=== PATIENT | female | born 1960 | race Caucasian/White ===

== ENCOUNTER 2017-05-23 05:47 | Inpatient (IN) | payer OTHER ==
--- NOTE | 2017-05-18 09:45 | HP ---
CHIEF COMPLAINT: Bilateral knee pain. HISTORY OF PRESENT ILLNESS: Kinga is a 57-year-old female with a history of pain in both knees that has been getting progressively worse. She has had both knee arthroscopy as well as Synvisc, however, has failed to gain relief. Because of her ongoing pain, she has requested operative intervention. After discussing the risks, benefits and alternatives to that, the patient has given informed consent. PAST SURGICAL HISTORY: 1. . 2. Tubal ligation. 3. Hysterectomy. 3. Knee arthroscopy. 4. Gastric sleeve. 5. Appendectomy. MEDICATIONS: 1. Gabapentin. 2. Lisinopril. 3. Omeprazole. 4. Trazodone. 5. Citalopram. 6. Meloxicam. 7. Potassium. 8. Tradjenta. 9. Furosemide. ALLERGIES: NO KNOWN DRUG ALLERGIES. CODE STATUS: Full code. IMMUNIZATIONS: Up to date. SOCIAL HISTORY: The patient does not drink, smoke or use any illicit drugs. FAMILY HISTORY: None pertinent to today's complaint. REVIEW OF SYSTEMS: Negative except as indicated in the History of Present Illness. PHYSICAL EXAMINATION: VITAL SIGNS: Blood pressure 147/79. Pulse 70. Height 5'4". Weight 195 pounds. MENTAL STATUS: The patient is awake, alert, and is able to give a good history and participate in the physical. The patient is oriented to person, place and time. SKIN: Normal tone and turgor. HEENT: Normocephalic, atraumatic. Pupils equal, round and reactive. Mucosal membranes are moist. NECK: Normal range of motion. No thyromegaly, no lymphadenopathy. CHEST: Normal respiratory excursion. CARDIAC: Regular rate and rhythm. No murmurs, rubs or gallops. MUSCULOSKELETAL: The bilateral upper extremities show full active range of motion without pain. Sensation is intact. They are warm and well perfused. There is no crepitus and no deformity. The right knee shows severe pain to palpation and crepitus throughout her range of motion. She has no varus/valgus or anterior/posterior laxity. She does have full extension to flexion of 115 degrees. There is no pain with range of motion of the hip or ankle. The left lower extremity shows full range of motion of the hip without pain. She has intact sensation in the extremity. She has crepitus throughout her range of motion and severe pain with palpation of the knee and has pain with range of motion. She has no varus/valgus or anterior/posterior laxity. Strength is 5/5 throughout. IMAGING: X-rays show severe arthritis. ASSESSMENT: 1. Osteoarthritis. PLAN: The plan at this point is for total knee arthroplasty. We have discussed the risks, benefits, and alternatives to that and the patient has given informed consent. [facility][id number] [facility]
[2017-05-23] MEDS ORDERED: SODIUM CHL 0.9% 100ML MINI-BAG 100 ML IVPB ONE (05:50)
[2017-05-23] MEDS ORDERED: LACTATED RINGERS 1,000 ML ONE (05:50)
[2017-05-23] MEDS ORDERED: ceFAZolin SODIUM 1 GM VIAL ONE ×3 (05:51→14:00)
[2017-05-23] MEDS ORDERED: VANCOMYCIN HCL INJ 1,000 MG VIAL IVPB ONE ×4 (05:51→19:39)
[2017-05-23] MEDS ORDERED: TRANEXAMIC ACID 1,000 MG/10 ML VIAL ONE ×2 (05:51→06:00)
[2017-05-23] MEDS ORDERED: SODIUM CHLORIDE 0.9% 500ML 0 ML ONE (05:52)
[2017-05-23] MEDS ORDERED: SODIUM CHLORIDE 0.9% 250ML 250 ML ONE ×3 (05:52→19:38)
[2017-05-23] MEDS ORDERED: SODIUM CHLORIDE 0.9% 100ML 100 ML IVPB ONE (06:00)
[2017-05-23] MEDS ORDERED: ACETAMINOPHEN IV 1000MG 100 ML ONE (06:26)
[2017-05-23] MEDS ORDERED: MIDAZOLAM INJ 2 MG/2 ML VIAL ONE (06:26)
[2017-05-23] MEDS ORDERED: MORPHINE SULF *EPIDURAL* 1 MG/ML VIAL ONE (06:27)
[2017-05-23] MEDS ORDERED: fentaNYL CITRATE INJ 50 MCG/ML AMP ONE (06:27)
[2017-05-23] MEDS ORDERED: PROMETHAZINE HCL INJ 12.5 MG in SODIUM CHLORIDE 0.9% 50ML 50 ML IVPB PRN (06:47)
[2017-05-23] MEDS ORDERED: DEX 5% W/NACL 0.45% 1000ML 1,000 ML IVS PRN (06:47)
[2017-05-23] MEDS ORDERED: TRANEXAMIC ACID INJ 1,000 MG in SODIUM CHLORIDE 0.9% 100ML 100 ML IVPB ONE (06:47)
[2017-05-23] MEDS ORDERED: SODIUM CHLORIDE 0.9% (FLUSH) 10 ML SYG IV PRN (06:47)
[2017-05-23] MEDS ORDERED: traMADol HCL 50 MG TAB PO PRN (06:47)
[2017-05-23] MEDS ORDERED: BISACODYL SUPPOSITORY 10 MG PR PRN (06:47)
[2017-05-23] MEDS ORDERED: NALOXONE HCL INJ 0.4 MG/ML VIAL IV PRN (06:47)
[2017-05-23] MEDS ORDERED: ACETAMINOPHEN 500 MG TAB PO PRN (06:47)
[2017-05-23] MEDS ORDERED: BENZOCAINE-MENTH LOZ (CEPACOL) 1 EA LOZ MT PRN (06:47)
[2017-05-23] MEDS ORDERED: ACETAMINOPHEN 325 MG TAB PO PRN (06:47)
[2017-05-23] MEDS ORDERED: MORPHINE SULFATE INJ 10 MG/ML VIAL IV PRN (06:47)
[2017-05-23] MEDS ORDERED: MAGNESIUM HYDROXIDE 30 ML UD PO PRN (06:47)
[2017-05-23] MEDS ORDERED: MORPHINE SULFATE INJ 10 MG/ML VIAL IM PRN (06:47)
[2017-05-23] MEDS ORDERED: PROMETHAZINE HCL INJ 25 MG in SODIUM CHLORIDE 0.9% 50ML 50 ML IVPB PRN (06:47)
[2017-05-23] MEDS ORDERED: ONDANSETRON INJ 4 MG/2 ML VIAL IV PRN (06:47)
[2017-05-23] MEDS ORDERED: TEMAZEPAM 15 MG CAP PO PRN (06:47)
[2017-05-23] MEDS ORDERED: ZOLPIDEM TARTRATE 5 MG TAB PO PRN (06:47)
[2017-05-23] MEDS ORDERED: ALUMINUM & MAGNESIUM HYDROXIDE 30 ML UD PO PRN (06:47)
[2017-05-23] MEDS ORDERED: MORPHINE PCA 1 MG/ML 100 ML BAG IVPB SCH (07:00)
[2017-05-23] MEDS ORDERED: BUPIVACAINE 0.25% W/EPI 50 ML VIAL INJ ONE (08:30)
[2017-05-23] MEDS ORDERED: ONDANSETRON ODT 8 MG TAB PO ONE (10:00)
[2017-05-23] MEDS ORDERED: PROPOFOL 200 MG/20 ML VIAL IV ONE (10:00)
[2017-05-23] MEDS ORDERED: LIDOCAINE 1% 10 ML VIAL INJ ONE (10:00)
[2017-05-23] MEDS ORDERED: raNITIdine HCL INJ 25 MG/ML VIAL IV ONE (10:00)
[2017-05-23] MEDS ORDERED: DEXAMETHASONE INJ 10 MG/ML VIAL IV ONE (10:00)
[2017-05-23] MEDS ORDERED: ePHEDrine SULF 50 MG/ML IV ONE (10:00)
--- NOTE | 2017-05-23 11:26 | OP ---
DATE OF PROCEDURE: 05/23/17 PREOPERATIVE DIAGNOSIS: 1. Osteoarthritis of the left knee. POSTOPERATIVE DIAGNOSIS: 1. Osteoarthritis of the left knee. PROCEDURE: 1. Left total knee arthroplasty. SURGEON: Gurwinder Pantoja MD. BAND RIPSAW OPERATOR: Denys Pantoja CST, SA-C. ANESTHESIA: General. COMPLICATIONS: None. FINDINGS: Severe osteoarthritis of the knee. INDICATION: Ms. Bejarano has a long history of pain in the knee which has been refractory to conservative measures. Because of her ongoing pain and the refractory nature, she is requesting operative intervention. After discussing the risks, benefits and alternatives to that, the patient has given informed consent for total knee arthroplasty. PROCEDURE: The patient was brought to the Operating Room and placed in supine position. General anesthesia was induced and the patient's leg was sterilely prepped and draped. Following prepping and draping, the distal femur was exposed and using an intramedullary guide, the distal femoral cut was made. The appropriate sized cutting block was measured, pinned into place, and the anterior, posterior, and chamfer cuts were made. The ACL was transected and the tibia was subluxed. Both the medial and lateral menisci were removed. An intramedullary guide was used to make the proximal tibial cut. The appropriate sized base plate was placed and a trial polyethylene was placed. The trial femur was placed, the knee was reduced, and the knee was taken through a range of motion. The knee was stable in anterior, posterior, varus and valgus stress. The patella tracked anatomically without evidence of subluxation or dislocation. After trialing, the trial components were removed and the bony surfaces were thoroughly irrigated with saline. Following irrigation, the surfaces were dried and the final components were cemented into place. The excess cement was removed and the remaining cement was allowed to cure. The knee was again taken through a range of motion to confirm stability. The wound was then irrigated with saline and closure was performed using PDS to approximate the arthrotomy followed by closure of the subcutaneous tissues with a combination of running and interrupted Monocryl sutures. Sterile dressing was placed. The patient was awoken from anesthesia and taken to Recovery. POSTOPERATIVE INSTRUCTIONS: The patient will be weight-bearing as tolerated on postoperative day 1. COMPONENTS: Luda Triathlon knee, size 3 femur, size 3 tibia, 13mm insert. (Mine) PROCEDURE: The patient was brought to the Operating Room and placed in supine position. General anesthesia was induced and the patient's leg was sterilely prepped and draped. A midline incision with a standard medial parapatellar approach was used. The distal femur was exposed. Using an intramedullary guide, the distal femoral cut was made. Following the distal femoral cut, the anterior, posterior and Chamfer cuts were made. The ACL was transected and the tibia was subluxed. Intramedullary guide was used to make the proximal tibial cut. Trial baseplate, followed by trial femur and trial polyethylene were placed. The knee was reduced and taken through a range of motion. The patella tracked well and the knee was stable in varus/valgus and anterior/posterior directions. The trial components were removed. The bony surfaces were thoroughly irrigated and then dried. The final components were cemented into place and the excess cement was removed. The remaining cement was then allowed to cure. The knee was thoroughly irrigated and closure was performed with reapproximation of the arthrotomy using PDS. The skin was closed with combination of running and interrupted subcuticular stitches. Sterile dressing was placed. The patient was awoken from anesthesia and taken to Recovery. #[id number] [facility]
--- NOTE | 2017-05-23 13:19 | CONS ---
SUPERVISING PHYSICIAN: Dallas Bernal MD DATE OF CONSULTATION: 05/23/17 REASON FOR CONSULTATION: Postoperative medical management. HISTORY OF PRESENT ILLNESS: Ms. Bejarano is a 57-year-old female who underwent elective left total knee arthroplasty today. There were no intraoperative complications. She had apparently had bilateral knee pain for several years and it has progressively gotten worse. She has undergone outpatient therapy and it is not resolved and, in fact, worsened. There is already a plan for her to undergo a right total knee arthroplasty in August. However, the left one was done today. On examination, the patient is alert and oriented. She does complain of 7/10 pain, but does have a OPERATIONS SUPPORT REPRESENTATIVE hooked up at this time. PAST MEDICAL HISTORY: 1. Diabetes. 2. Neuropathy. 3. Hypertension. 4. Gastroesophageal reflux disease. 5. Insomnia. 6. Obesity. PAST SURGICAL HISTORY: 1. Hysterectomy. 2. Tubal ligation. 3. . 4. Knee arthroscopy. 5. Gastric sleeve. 6. Appendectomy. CURRENT MEDICATIONS: 1. Gabapentin 300 mg p.o. daily. 2. Tradjenta 5 mg p.o. daily. 3. Lisinopril 40 mg p.o. daily. 4. Meloxicam 15 mg p.o. daily. 5. Metformin 1000 mg p.o. daily. 6. Omeprazole 40 mg p.o. daily. 7. Potassium 20 mEq p.o. daily. 8. Trazodone 100 mg p.o. at bedtime. ALLERGIES: NO KNOWN DRUG ALLERGIES. FAMILY HISTORY: Noncontributory. SOCIAL HISTORY: Nondrinker, nonsmoker. No illicit drugs. REVIEW OF SYSTEMS: 12-system review is normal except for bilateral knee pain as indicated in history of present illness. PHYSICAL EXAMINATION: VITAL SIGNS: Blood pressure 118/73. Heart rate 84. Respiratory rate 18. Temperature 97.9. Oxygen saturation 95%. GENERAL: Ms. Bejarano is a 57-year-old female in no active distress currently. HEENT: Normocephalic, atraumatic. Pupils are equal and reactive. No nasal drainage. Throat with moist mucosa. NECK: Supple. Midline trachea. No jugular venous distention. CHEST: Symmetrical with equal rise and fall of the chest with inspiration and expiration. Lung sounds are clear to auscultation bilaterally. CARDIOVASCULAR: Regular rate and rhythm. Normal S1, S2. ABDOMEN: Soft. Positive bowel sounds. GENITOURINARY: Deferred. EXTREMITIES: Left knee bound in a splint at this time. There is no peripheral edema. Pulses 2+. Capillary refill is less than 2 seconds. NEUROLOGIC: The patient is alert and oriented. ASSESSMENT: 1. Severe left knee osteoarthritis status post left total knee arthroplasty. 2. Hypertension. 3. Diabetes mellitus. 4. Peripheral neuropathy. 5. Gastroesophageal reflux disease. PLAN: 1. Continue physical therapy and postoperative treatment per postoperative orders by Dr. Pantoja. 2. I will resume her home medications. If her blood sugars become elevated despite her home medications, we can utilize a sliding scale. However, I will not do that at this time. 3. Lovenox is ordered at this point for DVT prophylaxis. 4. In the morning, I will check her chemistry as well as CBC. [facility][id number] [facility] [address]
[2017-05-23] MEDS: GABAPENTIN 300 MG CAP PO SCH (13:46)
[2017-05-23] MEDS: OMEPRAZOLE CAP 20 MG CAP PO SCH (13:47)
[2017-05-23] MEDS: CELECOXIB 100 MG CAP PO SCH ×2 (13:47→16:59)
[2017-05-23] MEDS: LISINOPRIL 10 MG TAB PO SCH (14:04)
[2017-05-23] MEDS: LINAGLIPTIN 5 MG TAB PO SCH (14:04)
[2017-05-23] MEDS: metFORMIN HCL 500 MG TAB PO SCH (14:05)
[2017-05-23] MEDS: MAGNESIUM OXIDE 400 MG TAB PO SCH (14:05)
[2017-05-23] MEDS: IV SET AND CAP CHANGE INJ INJ SCH (14:09)
[2017-05-23] MEDS ORDERED: ceFAZolin SODIUM 2 GRAMS PREMI 50 ML IVPB ONE ×2 (14:48→19:39)
[2017-05-23] MEDS ORDERED: GLUCAGON INJ 1 MG VIAL SUBCU PRN (15:23)
[2017-05-23] MEDS ORDERED: DEXTROSE 50% 25 GM/50 ML SYG IV PRN (15:23)
[2017-05-23] MEDS: ceFAZolin SODIUM 2 GRAMS PREMI 2 GM in PREMIX BAG 1 BAG IVPB SCH ×2 (15:47→23:39)
--- NOTE | 2017-05-23 16:35 | RAD ---
EXAM DESCRIPTION: Knee,Left 2 or More Views CLINICAL HISTORY: 57 years, Female, TKA COMPARISON: None TECHNIQUE: 2 views of the left knee FINDINGS: No fracture or dislocation. Total left knee arthroplasty is present with anatomic alignment of the femoral and tibial components. There is air in the joint and air in the soft tissues with dressings or drain in place. Lateral view shows normal position of the patella. No patellar spurring or enthesopathy. No suprapatellar knee joint effusion. Normal contour of quadriceps and patellar tendons. IMPRESSION: Total left knee arthroplasty. No complicating fracture. Electronically signed by: Fili Grier MD 05/23/2017 4:33 PM CDT
[2017-05-23] MEDS: SODIUM CHLORIDE 0.45% 1000ML 1,000 ML IVS PRN (16:48)
[2017-05-23] MEDS: INSULIN LISPRO 100 UNITS/ML PEN SUBCU SCH ×2 (16:58→21:15)
[2017-05-23] MEDS: VANCOMYCIN HCL INJ 1,000 MG in SODIUM CHLORIDE 0.9% 250ML 250 ML IVPB SCH (17:37)
[2017-05-23] MEDS ORDERED: ENOXAPARIN SODIUM 30 MG/0.3 ML SYG SUBCU ONE (19:39)
[2017-05-23] MEDS ORDERED: diphenhydrAMINE HCL 25 MG CAP ONE (20:07)
[2017-05-23] MEDS: DOCUSATE CALCIUM 240 MG CAP PO SCH (20:12)
[2017-05-23] MEDS: diphenhydrAMINE HCL 25 MG CAP PO PRN (20:12)
[2017-05-23] MEDS: traZODone HCL 100 MG TAB PO SCH (20:12)
[2017-05-23] MEDS: ENOXAPARIN SODIUM 30 MG/0.3 ML SYG SUBCU SCH (22:55)
[2017-05-24] MEDS: diphenhydrAMINE HCL 25 MG CAP PO PRN ×3 (05:27→16:04)
[2017-05-24] MEDS: VANCOMYCIN HCL INJ 1,000 MG in SODIUM CHLORIDE 0.9% 250ML 250 ML IVPB SCH (05:55)
[2017-05-24] MEDS: OMEPRAZOLE CAP 20 MG CAP PO SCH (06:12)
[2017-05-24] MEDS ORDERED: ceFAZolin SODIUM 2 GRAMS PREMI 50 ML IVPB ONE (07:00)
[2017-05-24] MEDS: INSULIN LISPRO 100 UNITS/ML PEN SUBCU SCH ×4 (07:09→21:37)
[2017-05-24] MEDS: metFORMIN HCL 500 MG TAB PO SCH (07:10)
[2017-05-24] MEDS: CELECOXIB 100 MG CAP PO SCH ×2 (07:10→16:04)
[2017-05-24] MEDS: ceFAZolin SODIUM 2 GRAMS PREMI 2 GM in PREMIX BAG 1 BAG IVPB SCH (08:00)
[2017-05-24] MEDS: GABAPENTIN 300 MG CAP PO SCH (08:04)
[2017-05-24] MEDS: LINAGLIPTIN 5 MG TAB PO SCH (08:04)
[2017-05-24] MEDS: LISINOPRIL 10 MG TAB PO SCH (08:04)
[2017-05-24] MEDS: MAGNESIUM OXIDE 400 MG TAB PO SCH (08:05)
[2017-05-24] MEDS: ENOXAPARIN SODIUM 30 MG/0.3 ML SYG SUBCU SCH ×2 (10:54→23:32)
--- NOTE | 2017-05-24 11:34 | PN ---
DATE: 05/24/17 SUBJECTIVE: Ms. Bejarano today is doing well. She has great pain control this morning. OBJECTIVE: Afebrile. Vital signs stable. Dressing is clean, dry and intact. ASSESSMENT: Status post total knee arthroplasty. PLAN: The plan at this point is for her to begin weight-bearing as tolerated today. #[id number] [facility]
--- NOTE | 2017-05-24 11:35 | PN ---
DATE: 05/23/17 POSTOPERATIVE CHECK SUBJECTIVE: Ms. Bejarano is doing well and has no pain. She had a successful spinal. OBJECTIVE: Afebrile. Vital signs stable. Dressing is clean, dry and intact. ASSESSMENT: Status post total knee arthroplasty. PLAN: The plan at this point is to begin weight-bearing as tolerated on postoperative day #1. #[id number] [facility]
[2017-05-24] MEDS: SODIUM CHLORIDE 0.45% 1000ML 1,000 ML IVS PRN (16:42)
--- NOTE | 2017-05-24 18:27 | PN ---
DATE: 05/24/17 SUBJECTIVE: Today is the first day after surgery. She successfully completed the surgical procedure yesterday and now is entering into a more active and steadily increasing program of rehabilitation to continue until it will be safe for her to continue with outpatient management. The patient is getting some rest but is able to answer questions fully. Her appetite is slowly improving as well. Still with pain especially with range of motion. Less discomfort upon weightbearing which will increase as rehab continues. OBJECTIVE: Afebrile, blood pressure 45/75, pulse oximetry is 99% on 2 liters. LUNGS: Clear. HEART: Tones regular. ABDOMEN: Soft yet slightly obese with no tenderness or organomegaly noted. The left knee appears to be in good position with no drainage into the dressings present. LABORATORY STUDIES: Hemoglobin 10.5 postoperatively with white count 13,200, neutrophils 83%. Urine culture is pending. ASSESSMENT: 1. Postoperative day #1 total left knee arthroplasty for advanced osteoarthritis and degenerative changes failing to respond to outpatient treatment and requiring surgical intervention to assist with symptom control. 2. History of hypertension. 3. Diabetes mellitus. 4. Chronic peripheral neuropathy. 5. History of gastroesophageal reflux disease. PLAN: Will continue with rehabilitation under Physical Therapy and Orthopedic Surgery supervision. Again, strongly encouraged to breathe deeply to prevent atelectasis and to assist with DVT prophylaxis along with contraction and relaxation of the lower extremity muscles. Continue with active rehabilitation and reevaluate in the morning. #[id number] [facility]
[2017-05-24] MEDS: traZODone HCL 100 MG TAB PO SCH (20:35)
[2017-05-24] MEDS: DOCUSATE CALCIUM 240 MG CAP PO SCH (20:35)
[2017-05-25] MEDS: OMEPRAZOLE CAP 20 MG CAP PO SCH (06:00)
[2017-05-25] MEDS: CYCLOBENZAPRINE HCL 10 MG TAB PO PRN ×2 (06:01→20:37)
[2017-05-25] MEDS: HYDROcodone 5MG/APAP 325MG 1 EA TAB PO PRN ×4 (06:01→20:36)
[2017-05-25] MEDS: CELECOXIB 100 MG CAP PO SCH ×2 (07:14→16:12)
[2017-05-25] MEDS: metFORMIN HCL 500 MG TAB PO SCH (07:14)
[2017-05-25] MEDS: INSULIN LISPRO 100 UNITS/ML PEN SUBCU SCH ×4 (07:16→21:30)
--- NOTE | 2017-05-25 08:24 | PN ---
DATE: 05/25/17 SUBJECTIVE: She is doing well and is having minimal pain. OBJECTIVE: Afebrile. Vital signs stable. Wound is clean. There are no signs or symptoms of infection. ASSESSMENT: Status post total knee arthroplasty. PLAN: She will continue with weight-bearing as tolerated and increase range of motion. She should be able to be discharged tomorrow. [facility][id number] [facility]
[2017-05-25] MEDS: LISINOPRIL 10 MG TAB PO SCH (08:33)
[2017-05-25] MEDS: MAGNESIUM OXIDE 400 MG TAB PO SCH (08:33)
[2017-05-25] MEDS: GABAPENTIN 300 MG CAP PO SCH (08:34)
[2017-05-25] MEDS: LINAGLIPTIN 5 MG TAB PO SCH (08:34)
[2017-05-25] MEDS: SODIUM CHLORIDE 0.9% (FLUSH) 10 ML SYG IV SCH ×2 (08:34→20:37)
[2017-05-25] MEDS: ENOXAPARIN SODIUM 30 MG/0.3 ML SYG SUBCU SCH ×2 (10:58→22:59)
--- NOTE | 2017-05-25 15:25 | PN ---
DATE: 05/25/17 SUBJECTIVE: Kinga Bejarano is now day 2 after total left knee arthroplasty. She is sitting up in the chair. She complains of discomfort especially upon weightbearing and suspension of the knee against gravity, but is showing some steady improvement. Her appetite is improved. No shortness of breath. Again strongly encouraged to breathe especially deep and to contract and relax her lower extremities to assist with DVT prophylaxis. OBJECTIVE: Afebrile, pulse 86, blood pressure 132/76, room air saturation 96%. The patient is awake and alert. Coloration is good. LUNGS: Clear. HEART: Tones regular. ABDOMEN: Soft. No drainage into the left knee incision dressing is noted. Blood pressure is doing well. LABORATORY: Sugar fasting this morning at 139. Urine culture was negative. ASSESSMENT: 1. Postoperative day #2 total left knee arthroplasty for advanced osteoarthritis and degenerative changes failing to respond to outpatient therapy and requiring surgical intervention to assist with symptom control. 2. History of hypertension. 3. Diabetes mellitus. 4. Chronic peripheral neuropathy. 5. History of gastroesophageal reflux disease. PLAN: Will continue rehab with reevaluation in the morning. Physical Therapy to discuss as to whether she will be ready to continue with outpatient management as of tomorrow. Continue ongoing observation, physical therapy and orthopedic surgical supervised rehabilitation and increased activity. [facility][id number] [facility]
[2017-05-25] MEDS: traZODone HCL 100 MG TAB PO SCH (20:37)
[2017-05-25] MEDS: DOCUSATE CALCIUM 240 MG CAP PO SCH (20:37)
[2017-05-26] MEDS: HYDROcodone 5MG/APAP 325MG 1 EA TAB PO PRN ×2 (04:30→08:30)
[2017-05-26] MEDS: OMEPRAZOLE CAP 20 MG CAP PO SCH (06:07)
[2017-05-26] MEDS: INSULIN LISPRO 100 UNITS/ML PEN SUBCU SCH (07:29)
[2017-05-26] MEDS: IV SET AND CAP CHANGE INJ INJ SCH (07:29)
[2017-05-26] MEDS: metFORMIN HCL 500 MG TAB PO SCH (07:47)
[2017-05-26] MEDS: CELECOXIB 100 MG CAP PO SCH (07:47)
[2017-05-26] MEDS: CYCLOBENZAPRINE HCL 10 MG TAB PO PRN (08:30)
[2017-05-26] MEDS: GABAPENTIN 300 MG CAP PO SCH (08:30)
[2017-05-26] MEDS: MAGNESIUM OXIDE 400 MG TAB PO SCH (08:30)
[2017-05-26] MEDS: LISINOPRIL 10 MG TAB PO SCH (08:30)
[2017-05-26] MEDS: LINAGLIPTIN 5 MG TAB PO SCH (08:30)
[2017-05-26] MEDS: SODIUM CHLORIDE 0.9% (FLUSH) 10 ML SYG IV SCH (08:31)
[2017-05-26 10:07] VITALS: BP 144/81; TEMP 98.2; O2SAT 99
[2017-05-26] MEDS: ENOXAPARIN SODIUM 30 MG/0.3 ML SYG SUBCU SCH (11:01)
--- NOTE | 2017-05-26 20:51 | DS ---
SUPERVISING PHYSICIAN: Dallas Bernal M.D. DISCHARGE DIAGNOSIS: 1. Postoperative day 3 for total left knee arthroplasty for advanced osteoarthritis and degenerative changes failing to respond to outpatient treatment therapy requiring surgical intervention for symptom control. 2. History of hypertension. 3. Diabetes mellitus. 4. Chronic peripheral neuropathy. 5. History of gastroesophageal reflux disease. REASON FOR HOSPITALIZATION: Ms. Bejarano is a 57 year-old female patient that underwent elective left knee arthroplasty on 05/23/17. She has had bilateral knee pain for several years secondary to osteoarthritis and degenerative changes that has progressively worsened. She had undergone several outpatient treatment measures that were unable to fully resolve her symptoms. The patient was seen in the immediate postoperative state and was followed through admission and discharge. LABORATORY: White count 13.2, hemoglobin 10.5, hematocrit 32.4, platelet count 203,000. Chemistries showed normal electrolytes with BUN 13, creatinine 0.79, blood sugars between 106 and 325. Urinalysis showed trace of blood, moderate leukocyte esterase with greater than 50 WBCs, 5 to 10 epithelials, 1+ urine bacteria. Urine culture showed no growth at 48 hours. RADIOLOGY: No additional radiographic studies were performed. HOSPITAL COURSE: Ms. Bejarano was admitted on 05/23/17 as noted above for elective total left knee arthroplasty performed by Dr. Gurwinder Pantoja. She had no complications intraoperative and was followed in the postoperative setting through physical therapy and rehabilitation efforts. It was felt that she had progressed with her physical therapy well enough to continue with outpatient therapy management. PLAN: Ms. Bejarano was to discharge to followup with Dr. Pantoja as scheduled on June 05 at 10:00 AM. She is to resume her home medications as instructed and to follow postoperative management of her wound as directed by Dr. Pantoja. She is to have no tub baths, could shower and utilize a walker, and increase activities as instructed by Physical Therapy. She was to return to the hospital should she have any concerning symptoms. At discharge, she had new prescriptions provided which included: 1. Flexeril 10 mg every 8 hours as needed for muscle spasms, #15. 2. [place] 5/325 one every 4 hours as needed for pain written by Dr. Pantoja. 3. Xarelto 10 mg daily for the next 8 days. All other medications prior to discharge were continued. Discharge diet was diabetic diet as tolerated. Condition on discharge was stable and improved. [facility][id number] [facility]
[2017-05-26] MEDS ORDERED: MAGNESIUM HYDROXIDE 30 ML UD PO ONE (21:00)
[2017-05-26] MEDS ORDERED: BISACODYL SUPPOSITORY 10 MG PR ONE (21:00)
== END 2017-05-26 11:32 | disposition home or self-care (01) | DRG 470 ==
LOC: AMB 05:47 → MS 10:15
PROVIDERS: ADMIT Orthopaedic Surgery; ATTEND Nurse Practitioner Family
PROC: 0SRD0J9 Replacement of Left Knee Joint with Synthetic Substitute, Cemented, Open Approach (ICD-10-PCS; principal; 2017-05-23 07:00)
DX: M17.12 Unilateral primary osteoarthritis, left knee (principal); I10 Essential (primary) hypertension; E11.42 Type 2 diabetes mellitus with diabetic polyneuropathy; K21.9 Gastro-esophageal reflux disease without esophagitis; G47.00 Insomnia, unspecified; E66.9 Obesity, unspecified; Z68.35 Body mass index [BMI] 35.0-35.9, adult

== ENCOUNTER 2017-08-15 05:47 | Inpatient (IN) | payer OTHER ==
[2017-08-15] MEDS ORDERED: ePHEDrine SULF 50 MG/ML ONE (07:00)
[2017-08-15] MEDS ORDERED: raNITIdine HCL INJ 25 MG/ML VIAL ONE (07:00)
[2017-08-15] MEDS ORDERED: PROPOFOL 200 MG/20 ML VIAL IV ONE (07:00)
[2017-08-15] MEDS ORDERED: SODIUM CHLORIDE 0.9% 50 ML VIAL ONE (07:00)
[2017-08-15] MEDS ORDERED: PHENYLEPHRINE INJ 1ML 10 MG/ML VIAL ONE (07:00)
[2017-08-15] MEDS ORDERED: DEXAMETHASONE INJ 10 MG/ML VIAL ONE (07:00)
[2017-08-15] MEDS ORDERED: METOCLOPRAMIDE HCL INJ 10 MG/2 ML VIAL ONE (07:00)
[2017-08-15] MEDS ORDERED: LACTATED RINGERS 1,000 ML ONE ×2 (08:27→14:00)
[2017-08-15] MEDS ORDERED: SODIUM CHL 0.9% 100ML MINI-BAG 100 ML IVPB ONE (08:27)
[2017-08-15] MEDS ORDERED: VANCOMYCIN HCL INJ 1,000 MG VIAL IVPB ONE ×3 (08:27→19:52)
[2017-08-15] MEDS ORDERED: TRANEXAMIC ACID 1,000 MG/10 ML VIAL ONE ×2 (08:27→08:28)
[2017-08-15] MEDS ORDERED: SODIUM CHLORIDE 0.9% 250ML 250 ML ONE ×2 (08:28→19:51)
[2017-08-15] MEDS ORDERED: ceFAZolin SODIUM 1 GM VIAL ONE ×2 (08:28→10:17)
[2017-08-15] MEDS ORDERED: SODIUM CHLORIDE 0.9% 100ML 100 ML IVPB ONE (08:28)
[2017-08-15] MEDS ORDERED: MIDAZOLAM INJ 2 MG/2 ML VIAL ONE ×2 (10:11→10:35)
[2017-08-15] MEDS ORDERED: fentaNYL CITRATE INJ 50 MCG/ML AMP ONE (10:11)
[2017-08-15] MEDS ORDERED: MORPHINE SULF *EPIDURAL* 1 MG/ML VIAL ONE (10:12)
[2017-08-15] MEDS ORDERED: BUPIVACAINE 0.25% W/EPI 50 ML VIAL INJ ONE (10:17)
[2017-08-15] MEDS ORDERED: BISACODYL SUPPOSITORY 10 MG PR PRN (11:11)
[2017-08-15] MEDS ORDERED: PROMETHAZINE HCL INJ 25 MG in SODIUM CHLORIDE 0.9% 50ML 50 ML IVPB PRN (11:11)
[2017-08-15] MEDS ORDERED: MAGNESIUM HYDROXIDE 30 ML UD PO PRN (11:11)
[2017-08-15] MEDS ORDERED: TRANEXAMIC ACID INJ 1,000 MG in SODIUM CHLORIDE 0.9% 100ML 100 ML IVPB ONE (11:11)
[2017-08-15] MEDS ORDERED: ACETAMINOPHEN 500 MG TAB PO PRN (11:11)
[2017-08-15] MEDS ORDERED: ACETAMINOPHEN 325 MG TAB PO PRN (11:11)
[2017-08-15] MEDS ORDERED: BENZOCAINE-MENTH LOZ (CEPACOL) 1 EA LOZ MT PRN (11:11)
[2017-08-15] MEDS ORDERED: MORPHINE SULFATE INJ 10 MG/ML VIAL IM PRN (11:11)
[2017-08-15] MEDS ORDERED: SODIUM CHLORIDE 0.9% (FLUSH) 10 ML SYG IV PRN (11:11)
[2017-08-15] MEDS ORDERED: TEMAZEPAM 15 MG CAP PO PRN (11:11)
[2017-08-15] MEDS ORDERED: ONDANSETRON INJ 4 MG/2 ML VIAL IV PRN (11:11)
[2017-08-15] MEDS ORDERED: NALOXONE HCL INJ 0.4 MG/ML VIAL IV PRN (11:11)
[2017-08-15] MEDS ORDERED: ALUMINUM & MAGNESIUM HYDROXIDE 30 ML UD PO PRN (11:11)
[2017-08-15] MEDS ORDERED: PROMETHAZINE HCL INJ 12.5 MG in SODIUM CHLORIDE 0.9% 50ML 50 ML IVPB PRN (11:11)
[2017-08-15] MEDS ORDERED: ZOLPIDEM TARTRATE 5 MG TAB PO PRN (11:11)
[2017-08-15] MEDS ORDERED: ACETAMINOPHEN IV 1000MG 100 ML ONE (11:19)
[2017-08-15] MEDS ORDERED: MORPHINE PCA 1 MG/ML 100 ML BAG IVPB SCH (11:30)
--- NOTE | 2017-08-15 13:35 | OP ---
DATE OF PROCEDURE: 08/15/17 PREOPERATIVE DIAGNOSIS: 1. Osteoarthritis. POSTOPERATIVE DIAGNOSIS: 1. Osteoarthritis. PROCEDURE: 1. Total knee arthroplasty. SURGEON: Gurwinder Pantoja MD. PROOF OPERATOR: Denys Pantoja CST, SA-C. ANESTHESIA: General anesthesia. COMPLICATIONS: None. FINDINGS: Severe arthritis. INDICATION: Ms. Bejarano has a long history of pain in both knees. She has had left knee arthroscopy and has recovered well. She has requested operative intervention on the right because of her failure of conservative measures. After discussing the risks, benefits and alternatives to that, the patient has given informed consent for total knee arthroplasty. PROCEDURE: The patient was brought to the Operating Room and placed in supine position. General anesthesia was induced and the patient's leg was sterilely prepped and draped. Following prepping and draping, the distal femur was exposed and using an intramedullary guide, the distal femoral cut was made. The appropriate sized cutting block was measured, pinned into place, and the anterior, posterior, and chamfer cuts were made. The ACL was transected and the tibia was subluxed. Both the medial and lateral menisci were removed. An intramedullary guide was used to make the proximal tibial cut. The appropriate sized base plate was placed and a trial polyethylene was placed. The trial femur was placed, the knee was reduced, and the knee was taken through a range of motion. The knee was stable in anterior, posterior, varus and valgus stress. The patella tracked anatomically without evidence of subluxation or dislocation. After trialing, the trial components were removed and the bony surfaces were thoroughly irrigated with saline. Following irrigation, the surfaces were dried and the final components were cemented into place. The excess cement was removed and the remaining cement was allowed to cure. The knee was again taken through a range of motion to confirm stability. The wound was then irrigated with saline and closure was performed using PDS to approximate the arthrotomy followed by closure of the subcutaneous tissues with a combination of running and interrupted Monocryl sutures. Sterile dressing was placed. The patient was awoken from anesthesia and taken to Recovery. POSTOPERATIVE INSTRUCTIONS: The patient will be weight-bearing as tolerated on postoperative day 1. COMPONENTS: [employer] Triathlon knee, size 3 femur, size 3 tibia, 11 mm insert. #[id number] [facility]
--- NOTE | 2017-08-15 14:31 | HP ---
CHIEF COMPLAINT: Knee pain. HISTORY OF PRESENT ILLNESS: Ms. Bejarano is a 57-year-old female with a history of pain severe pain in the knees. She has had left total knee arthroplasty. She is requesting right total knee arthroplasty. Unfortunately, she has failed conservative measures and as such, her options have become limited. Because of that, she and I have discussed the risks, benefits and alternatives to operative therapy. Informed consent was obtained. MEDICATIONS: 1. Gabapentin. 2. Lisinopril. 3. Omeprazole. 4. Trazodone. 5. Citalopram. 6. Meloxicam. 7. Potassium. 8. Tradjenta. 9. Furosemide. ALLERGIES: NO KNOWN DRUG ALLERGIES. CODE STATUS: Full code. IMMUNIZATIONS: Up to date. FAMILY HISTORY: None pertinent to today's complaint. SOCIAL HISTORY: The patient does not drink, smoke or use any illicit drugs. REVIEW OF SYSTEMS: Negative except as indicated in the History of Present Illness. PHYSICAL EXAMINATION: VITAL SIGNS: Blood pressure 147/79. Pulse 70. Height 5'4". Weight 185. MENTAL STATUS: The patient is awake, alert, and is able to give a good history and participate in the physical. The patient is oriented to person, place and time. SKIN: Normal tone and turgor. HEENT: Normocephalic, atraumatic. Pupils equal, round and reactive. Mucosal membranes are moist. NECK: Normal range of motion. No thyromegaly, no lymphadenopathy. CHEST: Normal respiratory excursion. CARDIAC: Regular rate and rhythm. No murmurs, rubs or gallops. MUSCULOSKELETAL: Bilateral upper extremities show full active range of motion. She has intact sensation. They are warm and well perfused. There is no crepitus with range of motion. Strength is 5/5. The left knee shows well- healed wound anteriorly. The hip has full range of motion. There is no deformity. She has full extension with flexion of the knee to about 120 degrees. Strength is 5/5. The right hip shows no pain with range of motion. Sensation is intact. It is warm and well perfused. She has severe pain with palpation of the knee. She has no varus/valgus or anterior/posterior laxity in the knee. She has mild effusion. ASSESSMENT: 1. Arthritis of the knee. PLAN: Because of her failure of conservative measures, she has requested operative intervention. We have discussed the risks, benefits, and alternatives to operative therapy and the patient has given informed consent. [facility][id number] [facility]
[2017-08-15] MEDS: IV SET AND CAP CHANGE INJ INJ SCH (15:02)
[2017-08-15] MEDS: DEX 5% W/NACL 0.45% 1000ML 1,000 ML IVS PRN (15:05)
--- NOTE | 2017-08-15 15:35 | CONS ---
DATE OF CONSULTATION: 08/15/17 SUPERVISING PHYSICIAN: Dallas Bernal M.D. REASON FOR CONSULTATION: Medical management. HISTORY OF PRESENT ILLNESS: This is a 57 year-old female who underwent an elective right total knee arthroplasty today. There were no intraoperative complications. She had had bilateral knee pain for several years and had progressively gotten worse. She underwent outpatient therapy and did not resolve the issues, and therefore she opted for surgery. Back in April she did have her left total knee arthroplasty without complication. Today, she underwent her right total knee arthroplasty. Currently she complains of pain at a 6 to 7, however the mobilization device is on at this time. The [employer]IST pump has been connected as well. PAST MEDICAL HISTORY: 1. Diabetes. 2. Neuropathy. 3. Hypertension. 4. Gastroesophageal reflux disease. 5. Lymphoma. 6. Obesity. PAST SURGICAL HISTORY: 1. Hysterectomy. 2. Tubal ligation. 3. section. 4. Left total knee arthroplasty. 5. Gastric sleeve. 6. Appendectomy. CURRENT MEDICATIONS: 1. Ferrous fumarate 80 mg p.o. daily. 2. Gabapentin 300 mg p.o. daily. 3. Trajenta 5 mg p.o. daily. 4. Lisinopril 40 mg p.o. daily. 5. Meloxicam 15 mg p.o. daily. 6. Metformin 1,000 mg p.o. daily. 7. Omeprazole 40 mg p.o. daily. 8. Potassium chloride 20 mEq p.o. daily. 9. Trazodone 100 mg p.o. at bedtime. ALLERGIES: NO KNOWN DRUG ALLERGIES. FAMILY HISTORY: Noncontributory. SOCIAL HISTORY: Nondrinker and nonsmoker. No illicit drugs. REVIEW OF SYSTEMS: Other than the right knee pain, the patient's 12 system review is normal. PHYSICAL EXAMINATION: VITAL SIGNS: Blood pressure 136/78, heart rate 100, respiratory rate 20, temperature 97.5, oxygen saturation 98%. GENERAL: Ms. Bejarano is a 57 year-old female who is in no active distress currently. HEENT: Head is normocephalic and atraumatic. EYES: Pupils are equal and reactive. NOSE: No drainage. THROAT: With moist mucosa. NECK: Supple. Midline trachea. No jugular venous distention. CHEST: Symmetrical with equal rise and fall of the chest with inspiration and expiration. Lung sounds are clear to auscultation bilaterally. HEART: Regular rate and rhythm. Normal S1 and S2. ABDOMEN: Soft, obese. Positive bowel sounds. EXTREMITIES: Lower extremity with no significant edema. Capillary refill is less than 2 seconds. Pulses are 2+. The right lower extremity is wrapped in Kei and a splint. NEUROLOGIC: The patient is alert and oriented. Moves all extremities. Extraocular movements are intact. IMPRESSION: 1. Severe right knee osteoarthritis status post right total knee arthroplasty. 2. Hypertension. 3. Diabetes mellitus. 4. Peripheral neuropathy. 5. Gastroesophageal reflux disease. PLAN: 1. Will continue physical therapy and postoperative treatment per orders by Dr. Pantoja. 2. I will resume her home medications. If her diabetes seems to be uncontrolled, I will start her on a sliding scale, however at this point I will utilize her p.o. medications. 3. Lovenox is already ordered for DVT prophylaxis, so will utilize this at this time. I will recheck her chemistry and magnesium along with H&H tomorrow morning to ensure these are acceptable. #[id number] [facility]
--- NOTE | 2017-08-15 16:00 | RAD ---
EXAM DESCRIPTION: Knee,Right 2 or More Views CLINICAL HISTORY: 57 years Female, TKA TECHNIQUE: 2 views of the right knee were performed. FINDINGS: The visualized bones appear well mineralized. No acute fracture or dislocation. Intact total knee arthroplasty. Suprapatellar soft tissue swelling and subcutaneous emphysema is noted consistent with recent surgery. IMPRESSION: Changes of right total knee arthroplasty with expected postsurgical changes in the surrounding soft tissues. Electronically signed by: Riana Patel MD 08/15/2017 3:59 PM CDT
[2017-08-15] MEDS: CELECOXIB 100 MG CAP PO SCH (16:41)
[2017-08-15] MEDS ORDERED: OMEPRAZOLE CAP 20 MG CAP ONE (19:51)
[2017-08-15] MEDS ORDERED: ENOXAPARIN SODIUM 30 MG/0.3 ML SYG SUBCU ONE (19:52)
[2017-08-15] MEDS ORDERED: ceFAZolin SODIUM 2 GRAMS PREMI 50 ML IVPB ONE (19:52)
[2017-08-15] MEDS: traZODone HCL 100 MG TAB PO SCH (20:43)
[2017-08-15] MEDS: DOCUSATE CALCIUM 240 MG CAP PO SCH (20:43)
[2017-08-15] MEDS: ceFAZolin SODIUM 2 GRAMS PREMI 2 GM in PREMIX BAG 1 BAG IVPB SCH (21:51)
[2017-08-15] MEDS: VANCOMYCIN HCL INJ 1,000 MG in SODIUM CHLORIDE 0.9% 250ML 250 ML IVPB SCH (22:32)
[2017-08-15] MEDS: HYDROcodone 5MG/APAP 325MG 1 EA TAB PO PRN (23:36)
[2017-08-15] MEDS: CYCLOBENZAPRINE HCL 10 MG TAB PO PRN (23:36)
[2017-08-16] MEDS: ENOXAPARIN SODIUM 30 MG/0.3 ML SYG SUBCU SCH ×2 (01:01→13:18)
[2017-08-16] MEDS: MORPHINE SULFATE INJ 10 MG/ML VIAL IV PRN ×2 (01:43→04:19)
[2017-08-16] MEDS ORDERED: ceFAZolin SODIUM 2 GRAMS PREMI 50 ML IVPB ONE ×2 (05:25→14:09)
[2017-08-16] MEDS: ceFAZolin SODIUM 2 GRAMS PREMI 2 GM in PREMIX BAG 1 BAG IVPB SCH ×2 (05:30→14:15)
[2017-08-16] MEDS ORDERED: diphenhydrAMINE HCL 50 MG/ML VIAL IV PRN (05:52)
[2017-08-16] MEDS: OMEPRAZOLE CAP 20 MG CAP PO SCH (06:07)
[2017-08-16] MEDS: CELECOXIB 100 MG CAP PO SCH ×2 (08:03→16:58)
[2017-08-16] MEDS: POTASSIUM CHLORIDE 20 MEQ TAB PO SCH (08:04)
[2017-08-16] MEDS: metFORMIN HCL 500 MG TAB PO SCH ×2 (08:04→08:08)
--- NOTE | 2017-08-16 08:05 | PN ---
DATE: 08/15/17 POSTOPERATIVE CHECK SUBJECTIVE: Ms. Bejarano is doing well and pain is well controlled. OBJECTIVE: Afebrile. Vital signs stable. Dressing is clean, dry and intact. ASSESSMENT: Status post total knee arthroplasty. PLAN: The plan at this point is to begin weight-bearing as tolerated on postoperative day 1. #[id number] [facility]
--- NOTE | 2017-08-16 08:07 | PN ---
DATE: 08/16/17 SUBJECTIVE: Ms. Bejarano is doing well and has no complaints. OBJECTIVE: Afebrile. Vital signs stable. Dressing is clean, dry and intact. ASSESSMENT: Status post total knee arthroplasty. PLAN: The plan at this point is for her to continue with weight-bearing as tolerated. #[id number] [facility]
[2017-08-16] MEDS ORDERED: MAGNESIUM SULFATE PREMIX 2GM 2 GM in PREMIX BAG 1 BAG IVPB ONE (08:34)
[2017-08-16] MEDS ORDERED: MAGNESIUM SULFATE PREMIX 2GM 50 ML IVPB ONE (08:57)
[2017-08-16] MEDS: FERROUS SULFATE 325 MG TAB PO SCH (09:19)
[2017-08-16] MEDS: LISINOPRIL 10 MG TAB PO SCH (09:19)
[2017-08-16] MEDS: GABAPENTIN 300 MG CAP PO SCH (09:19)
[2017-08-16] MEDS: MAGNESIUM OXIDE 400 MG TAB PO SCH (09:19)
[2017-08-16] MEDS: LINAGLIPTIN 5 MG TAB PO SCH (09:19)
[2017-08-16] MEDS ORDERED: SODIUM CHLORIDE 0.9% 250ML 250 ML ONE (11:21)
[2017-08-16] MEDS ORDERED: VANCOMYCIN HCL INJ 1,000 MG VIAL IVPB ONE (11:21)
[2017-08-16] MEDS: VANCOMYCIN HCL INJ 1,000 MG in SODIUM CHLORIDE 0.9% 250ML 250 ML IVPB SCH (11:25)
--- NOTE | 2017-08-16 11:39 | PN ---
SUPERVISING PHYSICIAN: Dallas Bernal MD DATE: 08/16/17 SUBJECTIVE: The patient states she is feeling okay. She is participating in physical therapy and actually ambulating in the [place] right now. She complains of obvious knee discomfort, but otherwise it is tolerable and the pain is being controlled. OBJECTIVE: VITAL SIGNS: Blood pressure 136/76. Heart rate 99. Respiratory rate 18. Temperature 98.5. Oxygen saturation 99%. GENERAL: Ms. Bejarano is a 57-year-old female in no active distress currently. NEUROLOGIC: Alert and oriented. LUNGS: Clear to auscultation bilaterally. CARDIOVASCULAR: Regular rate and rhythm. Normal S1, S2. ABDOMEN: Soft, obese. Positive bowel sounds. GENITOURINARY: Deferred. EXTREMITIES: Lower extremities with no edema. Capillary refill is less than 2 seconds. Right lower extremity still wrapped in Kei and splint. LABORATORY: Hemoglobin 11.1, hematocrit 34.4. Chemistry shows sodium 135, potassium 3.9, chloride 101, CO2 27, BUN 12, creatinine 0.64, glucose 124, calcium 9.2, magnesium 1.6. ASSESSMENT: 1. Severe right knee osteoarthritis status post right total knee arthroplasty , postoperative day #1. 2. Hypertension. 3. Diabetes mellitus. 4. Peripheral neuropathy. 5. Gastroesophageal reflux disease. 6. Hypomagnesemia. PLAN: 1. We will continue physical therapy and postoperative treatment per orders by Dr. Pantoja. 2. I am going to go ahead and replace her magnesium today. Continue all other current medications. She seems to be progressing pretty well with physical therapy so far. She may or may not rehab after this admission. #[id number] [facility]
[2017-08-16] MEDS: CYCLOBENZAPRINE HCL 10 MG TAB PO PRN (13:19)
[2017-08-16] MEDS: HYDROcodone 5MG/APAP 325MG 1 EA TAB PO PRN (17:18)
[2017-08-16] MEDS: DEX 5% W/NACL 0.45% 1000ML 1,000 ML IVS PRN (18:18)
[2017-08-16] MEDS ORDERED: DEXTROSE 50% 25 GM/50 ML SYG IV PRN (18:48)
[2017-08-16] MEDS ORDERED: GLUCAGON INJ 1 MG VIAL SUBCU PRN (18:48)
[2017-08-16] MEDS: INSULIN LISPRO 100 UNITS/ML PEN SUBCU SCH (21:03)
[2017-08-16] MEDS: traZODone HCL 100 MG TAB PO SCH (21:03)
[2017-08-16] MEDS: DOCUSATE CALCIUM 240 MG CAP PO SCH (21:03)
[2017-08-17] MEDS: CYCLOBENZAPRINE HCL 10 MG TAB PO PRN ×3 (00:32→23:30)
[2017-08-17] MEDS: ENOXAPARIN SODIUM 30 MG/0.3 ML SYG SUBCU SCH ×2 (00:32→13:43)
[2017-08-17] MEDS: HYDROcodone 5MG/APAP 325MG 1 EA TAB PO PRN ×5 (01:42→21:29)
[2017-08-17] MEDS: OMEPRAZOLE CAP 20 MG CAP PO SCH (06:27)
[2017-08-17] MEDS: INSULIN LISPRO 100 UNITS/ML PEN SUBCU SCH ×4 (07:33→21:18)
[2017-08-17] MEDS: metFORMIN HCL 500 MG TAB PO SCH (07:59)
[2017-08-17] MEDS: POTASSIUM CHLORIDE 20 MEQ TAB PO SCH (07:59)
[2017-08-17] MEDS: CELECOXIB 100 MG CAP PO SCH ×2 (07:59→16:53)
[2017-08-17] MEDS: SODIUM CHLORIDE 0.9% (FLUSH) 10 ML SYG IV SCH ×2 (09:11→21:15)
[2017-08-17] MEDS: GABAPENTIN 300 MG CAP PO SCH (09:11)
[2017-08-17] MEDS: LINAGLIPTIN 5 MG TAB PO SCH (09:11)
[2017-08-17] MEDS: LISINOPRIL 10 MG TAB PO SCH (09:11)
[2017-08-17] MEDS: FERROUS SULFATE 325 MG TAB PO SCH (09:11)
[2017-08-17] MEDS: MAGNESIUM OXIDE 400 MG TAB PO SCH (09:11)
--- NOTE | 2017-08-17 10:29 | PN ---
DATE: 08/17/17 SUBJECTIVE: Ms. Bejarano is continuing to improve with regards to pain. OBJECTIVE: Afebrile. Vital signs stable. Wound is clean. There are no signs or symptoms of infection. ASSESSMENT: Status post total knee arthroplasty. PLAN: The plan at this point is for her to continue with physical therapy. She is progressing at a rate that I think would be reasonable for her to be discharged this weekend. [facility][id number] [facility]
--- NOTE | 2017-08-17 11:01 | PN ---
SUPERVISING PHYSICIAN: Dallas Bernal MD DATE: 08/17/17 SUBJECTIVE: The patient is ambulating in the [place] once again. She is doing well and progressing well as far as physical therapy is concerned. OBJECTIVE: VITAL SIGNS: Blood pressure 161/85. Heart rate 96. Respiratory rate 16. Temperature 98.6. Oxygen saturation 100%. GENERAL: Ms. Bejarano is a 57-year-old female in no distress currently. NEUROLOGIC: Alert and oriented. LUNGS: Clear to auscultation bilaterally. CARDIOVASCULAR: Regular rate and rhythm. Normal S1, S2. ABDOMEN: Soft. Positive bowel sounds. GENITOURINARY: Deferred. EXTREMITIES: Lower extremities with no significant edema. Capillary refill is less than 2 seconds. Right lower extremity wound with no sign of infection. ASSESSMENT: 1. Severe right knee osteoarthritis status post right total knee arthroplasty , postoperative day #2. 2. Hypertension. 3. Diabetes mellitus. 4. Peripheral neuropathy. 5. Gastroesophageal reflux disease. PLAN: Continue physical therapy and postoperative treatment. She feels like she is going to go home around noon tomorrow as she has a ride coming in. She does have [facility] already set up that will come to her apartment. She is progressing quite well, so I do not feel like she is going to have any set backs to prevent this. I did start her on sliding scale last night as she did not want to take her metformin. Her glucoses have not been greatly out of range, however. We will plan on discharging tomorrow morning if nothing changes in the next 24 hours. #[id number] [facility]
[2017-08-17] MEDS: traMADol HCL 50 MG TAB PO PRN (18:40)
[2017-08-17] MEDS: traZODone HCL 100 MG TAB PO SCH (21:15)
[2017-08-17] MEDS: DOCUSATE CALCIUM 240 MG CAP PO SCH (21:15)
[2017-08-18] MEDS: ENOXAPARIN SODIUM 30 MG/0.3 ML SYG SUBCU SCH ×2 (01:25→13:45)
[2017-08-18] MEDS: traMADol HCL 50 MG TAB PO PRN ×2 (01:43→13:06)
[2017-08-18] MEDS: OMEPRAZOLE CAP 20 MG CAP PO SCH (06:04)
[2017-08-18 06:12] VITALS: TEMP 98.3
[2017-08-18] MEDS: HYDROcodone 5MG/APAP 325MG 1 EA TAB PO PRN ×2 (06:19→10:30)
[2017-08-18] MEDS: INSULIN LISPRO 100 UNITS/ML PEN SUBCU SCH ×2 (07:08→11:31)
[2017-08-18] MEDS: POTASSIUM CHLORIDE 20 MEQ TAB PO SCH (08:11)
[2017-08-18] MEDS: metFORMIN HCL 500 MG TAB PO SCH (08:11)
[2017-08-18] MEDS: CELECOXIB 100 MG CAP PO SCH (08:11)
[2017-08-18] MEDS: FERROUS SULFATE 325 MG TAB PO SCH (08:30)
[2017-08-18] MEDS: MAGNESIUM OXIDE 400 MG TAB PO SCH (08:30)
[2017-08-18] MEDS: LINAGLIPTIN 5 MG TAB PO SCH (08:30)
[2017-08-18] MEDS: GABAPENTIN 300 MG CAP PO SCH (08:30)
[2017-08-18] MEDS: CYCLOBENZAPRINE HCL 10 MG TAB PO PRN (08:31)
[2017-08-18] MEDS: LISINOPRIL 10 MG TAB PO SCH (08:31)
[2017-08-18] MEDS: SODIUM CHLORIDE 0.9% (FLUSH) 10 ML SYG IV SCH (08:41)
[2017-08-18 10:50] VITALS: BP 113/78; O2SAT 95
[2017-08-18] MEDS: IV SET AND CAP CHANGE INJ INJ SCH (11:32)
--- NOTE | 2017-08-18 15:18 | PN ---
DATE: 08/18/17 SUBJECTIVE: She is doing really well. She is planning on going home today. OBJECTIVE: She is afebrile. Vital signs are stable. Wound is clean. There are no signs or symptoms of infection. ASSESSMENT: 1. Status post total knee arthroplasty. PLAN: The plan at this point is for her discharge and she will followup on her scheduled appointment. [facility][id number] [facility]
--- NOTE | 2017-08-18 17:59 | DS ---
SUPERVISING PHYSICIAN: Abhishek Rodriguez M.D. PREOPERATIVE DIAGNOSIS: 1. Osteoarthritis. 2. Hypertension. 3. Diabetes mellitus. 4. Peripheral neuropathy. 5. Gastroesophageal reflux disease. 6. Hypomagnesemia. DISCHARGE DIAGNOSIS: 1. Severe right knee osteoarthritis status post right total knee arthroplasty , postoperative day #3. 2. Hypertension. 3. Diabetes mellitus. 4. Peripheral neuropathy. 5. Gastroesophageal reflux disease. 6. Hypomagnesemia. REASON FOR HOSPITALIZATION: Ms. Bejarano is a 57 year-old female patient who underwent an elective right knee total arthroplasty. She has had bilateral knee pain for several years and it has progressively worsened. Prior to surgery she had undergone outpatient therapy but had failed to receive any significant relief, and opted to have surgical intervention. She had a previous left knee done without any complications this past April. On 08/15/17, she underwent a right knee total arthroplasty and was followed through hospitalization to discharge. LABORATORY: Postoperative H&H was 11.1 and 34.3. Chemistries showed normal electrolytes on 08/16/17 with calcium 9.2, magnesium was low at 1.6, glucoses ranged from 88 to 256. MICROBIOLOGY: Methicillin resistant Staphylococcus aureus surveillance culture showed to be negative. RADIOLOGY: Postoperative x-ray of the knee showed visualized bones well mineralized. No acute fracture or dislocation with intact total knee arthroplasty. Suprapatellar soft tissue swelling and subcutaneous emphysema consistent with recent surgery. Impressions were changes in the right knee arthroplasty with expected postsurgical changes in surrounding soft tissues per radiology interpretation. HOSPITAL COURSE: Ms. Bejarano was admitted on 08/15/17 for elective total right knee arthroplasty which was performed by Dr. Gurwinder Pantoja. She had no complications with surgery. She was followed through her postoperative rehabilitation phase and showed no complications. Was able to participate with physical therapy and had good pain control, and was felt well enough and progressed well enough in her physical therapy to continue with outpatient management. PLAN: Ms. Bejarano was discharged on 08/18/17 with instructions to followup with Dr. Pantoja as scheduled. She was to resume her rehab efforts through [facility] through [place], [place]. She was to resume her home medications as instructed and take all new medications as directed. She was told to return to the hospital or call Dr. Pantoja should she have any concerning symptoms. Diet at discharge was diabetic diet. Activity is to ambulate only with a walker per physical therapy and increase as tolerated. May shower, no tub baths. Wound management as per Dr. Pantoja's orthopedic postoperative instructions. Medications at discharge included: 1. Flexeril 10 mg every 8 hours, #30. 2. [place] 5 mg one every 4 hours as needed for pain, #[address] Pantoja. 3. Xarelto 10 mg daily for an additional 9 days. All other medications were resumed as prior to hospitalization. Condition at discharge was stable and improved. #[id number] [facility]
[2017-08-18] MEDS ORDERED: MAGNESIUM HYDROXIDE 30 ML UD PO ONE (21:00)
[2017-08-18] MEDS ORDERED: BISACODYL SUPPOSITORY 10 MG PR ONE (21:00)
== END 2017-08-18 13:31 | disposition home health service (06) | DRG 470 ==
LOC: AMB 05:47 → MS 14:25
PROVIDERS: ADMIT Orthopaedic Surgery; ATTEND Nurse Practitioner Family
PROC: 0SRC0J9 Replacement of Right Knee Joint with Synthetic Substitute, Cemented, Open Approach (ICD-10-PCS; principal; 2017-08-15 10:30)
DX: M17.11 Unilateral primary osteoarthritis, right knee (principal); I10 Essential (primary) hypertension; E11.42 Type 2 diabetes mellitus with diabetic polyneuropathy; K21.9 Gastro-esophageal reflux disease without esophagitis; E83.42 Hypomagnesemia; Z96.652 Presence of left artificial knee joint; E66.9 Obesity, unspecified; Z85.72 Personal history of non-Hodgkin lymphomas; Z98.84 Bariatric surgery status; Z79.1 Long term (current) use of non-steroidal anti-inflammatories (NSAID); Z79.84 Long term (current) use of oral hypoglycemic drugs; Z79.899 Other long term (current) drug therapy; Z68.32 Body mass index [BMI] 32.0-32.9, adult

== ENCOUNTER 2017-11-06 05:30 | Day surgery (SDC) | payer OTHER ==
--- NOTE | 2017-11-05 15:10 | HP ---
CHIEF COMPLAINT: Right knee stiffness. HISTORY OF PRESENT ILLNESS: Kinga is a 57-year-old female that underwent total knee arthroplasty. She admittedly did not perform her physical therapy as aggressively as she should have. Because of that, she has developed stiffness in the knee. Her stiffness is on her best days preventing her from going beyond 105 degrees. Because of her ongoing stiffness, she has requested closed manipulation. After discussing the risks, benefits and alternatives to that, the patient has given informed consent. MEDICATIONS: 1. Gabapentin. 2. Lisinopril. 3. Omeprazole. 4. Trazodone. 5. Citalopram. 6. Meloxicam. 7. Potassium. 8. Tradjenta. 9. Furosemide. ALLERGIES: NO KNOWN DRUG ALLERGIES. CODE STATUS: Full code. IMMUNIZATIONS: Up to date. FAMILY HISTORY: None pertinent to today's complaint. SOCIAL HISTORY: The patient does not drink, smoke or use any illicit drugs. REVIEW OF SYSTEMS: Negative except as indicated in the History of Present Illness. PHYSICAL EXAMINATION: VITAL SIGNS: Blood pressure 146/78. Pulse 71. Height 5'4". Weight 194 pounds. MENTAL STATUS: The patient is awake, alert, and is able to give a good history and participate in the physical. The patient is oriented to person, place and time. SKIN: Normal tone and turgor. MUSCULOSKELETAL: She has no swelling or erythema and no increased warmth about the knee. She has intact sensation throughout. She has just about full extension tricia just about 100 degrees of flexion. She has no varus/valgus or anterior/posterior laxity. Sensation is intact. ASSESSMENT: 1. Arthrofibrosis. PLAN: The plan at this point is for closed manipulation under anesthesia. We have discussed the risks, benefits, and alternatives to that and the patient has given informed consent. #[id number] [facility]
[2017-11-06] MEDS ORDERED: LACTATED RINGERS 1,000 ML ONE (05:52)
[2017-11-06] MEDS ORDERED: MORPHINE SULF *EPIDURAL* 1 MG/ML VIAL ONE (07:54)
[2017-11-06] MEDS ORDERED: MORPHINE SULFATE INJ 10 MG/ML VIAL ONE (07:55)
--- NOTE | 2017-11-06 08:59 | OP ---
DATE OF PROCEDURE: 11/06/17 PREOPERATIVE DIAGNOSIS: 1. Arthrofibrosis of the right knee. POSTOPERATIVE DIAGNOSIS: 1. Arthrofibrosis of the right knee. PROCEDURE: 1. Closed manipulation of the right knee. SURGEON: Gurwinder Pantoja MD. RN CASE MANAGEMENT: Denys Pantoja CST, SA-C. ANESTHESIA: Conscious sedation. COMPLICATIONS: None. FINDINGS: Preoperative range of motion to about 100 degrees. Postoperatively, to about 120 to 125 degrees. INDICATION: Ms. Bejarano has a history of total knee arthroplasty. It was uncomplicated and she admits to not doing aggressive physical therapy. Following discussion of the risks, benefits and alternatives to operative intervention for closed manipulation, she gave informed consent. PROCEDURE: The patient was brought to the Operating Room and placed in supine position. Conscious sedation was administered and once that had been achieved, the knee was hyperflexed. Following hyperflexion, the knee was visualized under fluoroscopic imaging to ensure no immediate complications. The patient was then returned to the Day Surgery Unit for recovery. POSTOPERATIVE PLAN: She will start aggressive physical therapy on postoperative day 0. I have again counseled her as to the importance of aggressive physical therapy. #[id number] [facility]
[2017-11-06 09:17] VITALS: BP 154/90; TEMP 96.7; O2SAT 100
[2017-11-06] MEDS ORDERED: DEXAMETHASONE INJ 10 MG/ML VIAL IV ONE (10:00)
[2017-11-06] MEDS ORDERED: LIDOCAINE 1% 10 ML VIAL INJ ONE (10:00)
[2017-11-06] MEDS ORDERED: raNITIdine HCL INJ 25 MG/ML VIAL IV ONE (10:00)
[2017-11-06] MEDS ORDERED: PROPOFOL 200 MG/20 ML VIAL IV ONE (10:00)
== END 2017-11-06 09:15 | disposition home or self-care (01) ==
LOC: AMB 05:30
PROVIDERS: ATTEND Orthopaedic Surgery
DX: M24.661 Ankylosis, right knee (principal); I10 Essential (primary) hypertension; E11.9 Type 2 diabetes mellitus without complications; K21.9 Gastro-esophageal reflux disease without esophagitis; E66.9 Obesity, unspecified; Z79.01 Long term (current) use of anticoagulants; Z79.84 Long term (current) use of oral hypoglycemic drugs; Z79.899 Other long term (current) drug therapy
CPT/HCPCS: 01380; 27570; 36416; 76000; 82948; 87070; J1100; J2270; J2780; J3490; J7120